=== PATIENT | female | born 1940 | race Two or more races ===

== ENCOUNTER → 2020-05-15 | Day surgery (SDC) | payer MEDICARE, BC ==
[2020-05-08 15:11] LABS: Basophils # (auto) 0.1 10 ^3/uL (0-0.2); Eosinophils # (auto) 0.3 10 ^3/uL (0-0.8); Eosinophils % (auto) 4.7 % (0.0-7.0); Hematocrit 37.6 % (36.0-46.0); Hemoglobin 12.4 g/dL (12.2-16.2); Lymphocytes # (auto) 1.4 10 ^3/uL (0.4-5.4); Lymphocytes % (auto) 24.5 % (10.0-50.0); Mean Corpuscular Hemoglobin 29.4 pg (28.0-32.0); Monocytes # (auto) 0.5 10 ^3/uL (0-1.3); Monocytes % (auto) 8.2 % (0.0-12.0); Neutrophils # (auto) 3.5 10 ^3/uL (1.6-8.6); Neutrophils % (auto) 61.6 % (37.0-80.0); Platelet Count (auto) 176 10^3/uL (140-450); Red Blood Cells 4.23 10^6/uL (4.0-5.20); Red Cell Distribution Width 16.1 % (11.8-14.3); White Blood Cell 5.6 10^3/uL (4.4-10.8)
[2020-05-08 15:18] LABS: Urine Bacteria FEW /hpf (None Seen); Urine Blood Negative /uL (Negative); Urine Hyaline Cast FEW /lpf (0 - 2); Urine Specific Gravity 1.007 (1.001-1.035); Urine WBC 1 /hpf (0 - 5)
[2020-05-08 15:23] LABS: Albumin 3.6 g/dL (3.4-5.0); Calcium 9.8 mg/dL (8.5-10.1); Potassium 3.9 mmol/L (3.5-5.1)
[2020-05-08 15:28] LABS: Bilirubin, Total 0.4 mg/dL (0.2-1.0); Total Protein 7.7 g/dL (6.4-8.2)
[2020-05-08 15:32] LABS: INR 0.99 (0.9-1.15); Partial Thromboplastin Time 30.2 sec (23.0-31.2)
[~2020-05-15] VITALS: Ht 149.9 cm; Wt 54.0 kg
[~2020-05-15] MED LIST: ASCO500T11 PO; ASPI-543 PO; ATOR40TA52 PO; BACL10TA PO; BUPIVACAINE 0.5% MPF INJ 30ML SDV IJ ONE; CRAN250C PO; CYAN1TAB14 PO; DIPH-506 PO; EZET10TA22 PO; FERR-20 PO; FOLI1TAB6 PO; GABA300C10 PO; HYDR-4833 PO; HYDROmorphone HCL 2 MG/ML VL IV PRN; INFL100I IV; LEVO50TA7 PO; LIDOCAINE 1% HCL (LOCAL ANESTH.) INJ 20ML MDV ONE; MIDAZOLAM HCL 1MG/1ML-2 ML VIAL ONE; MILK250C2 PO; MORPHINE SULFATE 4 MG/ML SYR/VIAL IV PRN; OMEP20TA PO; ONDANSETRON HCL 4 MG/2 ML VIAL IV PRN; ONDANSETRON HCL 4 MG/2 ML VIAL ONE; OYST500T29 PO; PROPOFOL 10 MG/ML 20 ML IV ONE; PYRI1TAB3 PO; SODIUM CHLORIDE LOCK 10 ML ONE; UBIQ100C6 PO; ceFAZolin 1GM/50ML 50 ML IV ONE; fentaNYL CITRATE 100 MCG/2 ML VL ONE
[2020-05-15 14:35] VITALS: BP 132/57
== END | disposition home or self-care (01) ==
LOC: SUR 07:26
PROVIDERS: ATTEND Podiatrist
DX: M20.11 Hallux valgus (acquired), right foot (principal); D64.9 Anemia, unspecified; E07.9 Disorder of thyroid, unspecified; G62.9 Polyneuropathy, unspecified; M19.90 Unspecified osteoarthritis, unspecified site; Z79.899 Other long term (current) drug therapy; Z21 Asymptomatic human immunodeficiency virus [HIV] infection status; Z20.828 Contact with and (suspected) exposure to other viral communicable diseases; Z98.890 Other specified postprocedural states
CPT/HCPCS: 28750; 36415; 73620; 80053; 81001; 85025; 85610; 85730; C1713; J0690; J2001; J2250; J2405; J2704; J3010; J3490; U0003; 76000